=== PATIENT | female | born 2000 | race Caucasian/White ===

== ENCOUNTER → 2021-12-13 | Outpatient (CLI) | payer OTHER ==
[2021-12-13 15:05] LABS: FREE T4 1.06 NG/DL (0.78-1.33); THYROID STIMULATING HORMONE 1.22 uIU/ML (0.463-3.98)
[2021-12-13 15:28] LABS: PROLACTIN 4.3 NG/ML
== END ==
LOC: M PLALAB 09:17
PROVIDERS: ATTEND Surgery
DX: N64.52 Nipple discharge (principal)

== ENCOUNTER → 2022-01-03 | Outpatient (CLI) | payer OTHER ==
[2022-01-03 09:16] VITALS: BP 102/60
== END ==
LOC: M WHCPRO 07:49
PROVIDERS: ATTEND Surgery
DX: N63.24 Unspecified lump in the left breast, lower inner quadrant (principal); N63.12 Unspecified lump in the right breast, upper inner quadrant

== ENCOUNTER 2022-01-23 07:08 | Day surgery (SDC) | payer OTHER ==
[~2022-01-23] VITALS: Ht 160 cm; Wt 58.0 kg
[~2022-01-23 07:08] MED LIST: HEPARIN SOD (PORCINE) 5000UNITS/ML 1ML VIAL/SYRINGE SQ ONE; MULT-90 PO; NS 1,000 ML IV SCH; ceFAZolin SOD 2 GM in IV 1 EA IV ONE
[2022-01-23] MEDS ORDERED: LR 1,000 ML IV SCH (07:40)
[2022-01-23] MEDS ORDERED: LIDOCAINE 1% SDV 30ML VIAL As Ordered ONE (07:51)
[2022-01-23] MEDS ORDERED: BUPIVACAINE HCL 0.25% 30ML VIAL As Ordered ONE (07:51)
[2022-01-23 08:25] LABS: HCG, SERUM QUALITATIVE NEGATIVE (NEGATIVE)
[2022-01-23] MEDS ORDERED: METOCLOPRAMIDE INJ 10MG/2ML VIAL (J2765 PER 1) As Ordered ONE (09:00)
[2022-01-23] MEDS ORDERED: MIDAZOLAM INJ 2MG/2ML VIAL (J2250 PER 1MG) As Ordered ONE (09:00)
[2022-01-23] MEDS ORDERED: LIDOCAINE 2% 100MG/5ML SDV (FOR ANES.) As Ordered ONE (09:00)
[2022-01-23] MEDS ORDERED: ACETAMINOPHEN 1000MG 100ML IV BAG As Ordered ONE (09:00)
[2022-01-23] MEDS ORDERED: propofoL 200 MG/20 ML VIAL As Ordered ONE ×2 (09:00→09:28)
[2022-01-23] MEDS ORDERED: ONDANSETRON 4MG 2ML VIAL As Ordered ONE (09:00)
[2022-01-23] MEDS ORDERED: PHENYLephrine 500MCG 5ML (100MCG/ML) SYRINGE As Ordered ONE (09:00)
[2022-01-23] MEDS ORDERED: fentaNYL 250 MCG/5 ML INJECTION As Ordered ONE (09:00)
[2022-01-23] MEDS ORDERED: dexameTHASONE 4 MG/ML 1ML VIAL (J1100 PER 1MG) As Ordered ONE (09:00)
[2022-01-23] MEDS ORDERED: TRAM50TA2 PO ×2 (09:29→09:49)
[2022-01-23] MEDS ORDERED: oxyCODONE 5MG TAB PO PRN (09:30)
[2022-01-23] MEDS ORDERED: ONDANSETRON 4MG 2ML VIAL IV PRN (09:30)
[2022-01-23] MEDS ORDERED: MORPHINE 2 MG/ML 1ML VIAL IV PRN (09:35)
[2022-01-23] MEDS ORDERED: fentaNYL 100 MCG/2 ML INJECTION IV PRN (09:35)
[2022-01-23 10:38] VITALS: BP 115/59
== END 2022-01-23 11:06 | disposition home or self-care (01) ==
LOC: M SDC 07:08
PROVIDERS: ATTEND Surgery
DX: D24.2 Benign neoplasm of left breast (principal); D24.1 Benign neoplasm of right breast; N64.52 Nipple discharge; R23.4 Changes in skin texture
CPT/HCPCS: 19120; 36415; 81025; 84703; 86850; 86900; 86901; 87635; 88307; J0131; J0690; J1100; J1644; J2250; J2370; J2405; J2765; J3010

== ENCOUNTER → 2023-11-07 | Outpatient (REF) | payer OTHER ==
[~2023-11-07] MED LIST changes: -HEPARIN SOD (PORCINE) 5000UNITS/ML 1ML VIAL/SYRINGE SQ ONE; -NS 1,000 ML IV SCH; +TRAM50TA2 PO; -ceFAZolin SOD 2 GM in IV 1 EA IV ONE
== END ==
LOC: M PLALAB 09:23
PROVIDERS: ATTEND Obstetrics & Gynecology
DX: Z3A.36 36 weeks gestation of pregnancy (principal)